=== PATIENT | male | born 2000 | race Two or more races ===

== ENCOUNTER 2023-02-10 22:07 | Emergency (ER) | payer MEDICAID, OTHER ==
[~2023-02-10] VITALS: Ht 182.9 cm; Wt 63.6 kg
[2023-02-11 00:30] VITALS: RESP 22; TEMP 98.4; O2SAT 97
[2023-02-11] MEDS ORDERED: fentaNYL CITRATE 100 MCG/2 ML VL IV ONE (00:45)
[2023-02-11] MEDS ORDERED: ONDANSETRON HCL 4 MG/2 ML VIAL IV ONE (00:45)
[2023-02-11 01:20] VITALS: O2SAT 100
[2023-02-11 01:43] VITALS: BP 109/57; PULSE 73; RESP 16
[2023-02-11] MEDS ORDERED: HYDR-4902 PO (01:43)
[2023-02-11] MEDS ORDERED: KETOROLAC TROMETH 30 MG/ML 1ML VIAL IV ONE (01:45)
== END 2023-02-11 02:21 | disposition home or self-care (01) ==
LOC: ER 22:13
DX: M24.412 Recurrent dislocation, left shoulder (principal)
CPT/HCPCS: 23650; 73020; 73030; 96374; 96375; 99285; J1885; J2405; J3010

== ENCOUNTER 2023-10-22 13:42 | Emergency (ER) | payer MEDICAID ==
[~2023-10-22] VITALS: Ht 182.9 cm; Wt 63.4 kg
[~2023-10-22 13:42] MED LIST: HYDR-4902 PO
[2023-10-22 15:31] VITALS: BP 110/50; PULSE 74; RESP 18; TEMP 97.8; O2SAT 100
== END 2023-10-22 15:33 | disposition home or self-care (01) ==
LOC: ER 13:44
DX: M24.412 Recurrent dislocation, left shoulder (principal); F15.90 Other stimulant use, unspecified, uncomplicated; Z79.899 Other long term (current) drug therapy
CPT/HCPCS: 23650; 73020

== ENCOUNTER 2023-12-24 19:43 | Emergency (ER) | payer MEDICAID ==
[~2023-12-24] VITALS: Ht 182.9 cm; Wt 60.9 kg
[2023-12-24] MEDS: ONDANSETRON HCL 4 MG/2 ML VIAL IV ONE ×2 (20:45→22:49)
[2023-12-24] MEDS: MORPHINE SULFATE 4 MG/ML SYR/VIAL IV ONE (20:45)
[2023-12-24] MEDS ORDERED: KETAMINE 50mg/ML 10ml Vial 10 ML ONE (20:50)
[2023-12-24 21:30] VITALS: TEMP 98.4
[2023-12-24] MEDS: MIDAZOLAM HCL 2MG/2ML 2ml VIAL (1mg/ml) IM ONE (21:34)
[2023-12-24] MEDS: KETAMINE 50mg/ML 1ml syringe IV ONE (21:34)
[2023-12-24] MEDS ORDERED: MORPHINE SULFATE 4 MG/ML SYR/VIAL ONE (21:41)
[2023-12-24 21:45] VITALS: BP 118/76
[2023-12-24] MEDS ORDERED: MORPHINE SULFATE 4 MG/ML SYR/VIAL IV ONE (21:45)
[2023-12-24 23:19] VITALS: PULSE 81; RESP 16; O2SAT 98
[2023-12-25] MEDS ORDERED: IBU600T PO
== END 2023-12-25 00:03 | disposition home or self-care (01) ==
LOC: ER 19:43
DX: S43.005A Unspecified dislocation of left shoulder joint, initial encounter (principal); F12.10 Cannabis abuse, uncomplicated; W20.8XXA Other cause of strike by thrown, projected or falling object, initial encounter; Y93.39 Activity, other involving climbing, rappelling and jumping off; Y92.89 Other specified places as the place of occurrence of the external cause; Y99.8 Other external cause status
CPT/HCPCS: 23650; 73030; 96374; 96375; 96376; 99152; 99285; J2250; J2270; J2405